=== PATIENT | male | born 1970 | race Caucasian/White ===

== ENCOUNTER 2018-03-31 20:42 | Emergency (ER) | payer OTHER ==
[~2018-03-31] VITALS: Ht 177.8 cm; Wt 104.3 kg
[~2018-03-31 20:42] MED LIST: AZITHROMYCIN250 M1 PO; CYCLOBENZAPRINE10 M1 PO; IBUPROFEN800 M1 PO; NASONEX17 GM NASB; PANTOPRAZOLE SO40 M1 PO; PERCOCET 5-3251 EACH PO; PREDNISONE 20MG20 MG PO; PROAIR HFA8.5 GM INH; VIBRAMYCIN 100100 MG PO; ZOFRAN4 M2 PO
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
[2018-03-31 21:02] LABS: ABSOLUTE BASOPHIL COUNT 0.1 /CUMM (0.0-0.2); ABSOLUTE EOSINOPHIL COUNT 0 /CUMM (0.0-0.7); ABSOLUTE GRANULOCYTE CT 9.3 /CUMM (1.4-6.5); ABSOLUTE LYMPH COUNT 2.5 /CUMM (1.2-3.4); BASOPHIL % 0.6 % (0.0-2.0); EOSINOPHIL % 0.2 % (0-5); GRANULOCYTE % 72.1 % (42.2-75.2); HEMATOCRIT 46.4 % (42-52); MEAN CORPUSCULAR HGB 31.2 PG (27.0-31.0); MEAN CORPUSCULAR HGB CONC 34.8 G/DL (33.0-37.0); MEAN CORPUSCULAR VOLUME 89.6 FL (80.0-94.0); MEAN PLATELET VOLUME 7.5 FL (7.4-10.4); PLATELET COUNT 342 /CUMM (130-400); RBC DISTRIBUTION WIDTH 14.3 % (11.5-14.5); RED BLOOD CELL CT 5.18 /CUMM (4.70-6.10); WHITE BLOOD CELL COUNT 12.9 /CUMM (4.8-10.8)
--- NOTE | 2018-03-31 22:37 | RADIOLOGY REPORT ---
EXAMINATION: XR PORTABLE CHEST CLINICAL INFORMATION: Chest pain. COMPARISON: 06/17/2016 TECHNIQUE: Portable frontal view of the chest was obtained. FINDINGS: Cardiac and mediastinal silhouette is within normal limits. Lungs are symmetrically expanded. There are no pleural effusions or pneumothorax. No focal consolidation. No acute osseous abnormality. IMPRESSION: No evidence of acute process.
[2018-03-31 23:19] VITALS: BP 118/68
== END 2018-03-31 23:26 | disposition short-term general hospital (02) ==
LOC: ERH 20:42
PROVIDERS: Pediatrics
DX: R07.9 Chest pain, unspecified (principal)
CPT/HCPCS: 71045; 93005; 93010; 96374; 96375; 99291; G0480; J1644; J1885